=== PATIENT | female | born 1950 | race Caucasian/White ===

== ENCOUNTER → 2016-08-23 | Outpatient (CLI) | payer BC ==
[~2016-08-23] MED LIST: ANAS1TAB19 PO; CALC600T9; ESCI10TA17 PO; ESCI1TAB10 PO; FEXO1TAB46 PO; LOSA100T2; MULT-506 PO; OMEG-27; SIMV10TA5 PO
[2016-08-23 13:24] VITALS: BP 134/73; PULSE 92; TEMP 37; O2SAT 92
--- NOTE | 2016-08-23 15:02 | Radiation Oncology Follow-Up ---
Radiation Oncology Follow-Up Date of Visit August 23, 2016. Reason For Visit Annual follow-up Radiation Completion Date 12/31/13 Diagnosis (1) Stage I breast cancer Status: Resolved Onset Date: 09/27/2013 Histology Subtype: ductal Stage: l Permanent Comment: Abnormal left breast mammogram Status post core needle biopsies of 2 lesions on 09/27/2013; both lesions at 1 o 'clock position. First lesion 4 cm from the nipple infiltrating ductal carcinoma. Second lesion 5 cm from the nipple infiltrating ductal carcinoma, both estrogen receptor positive progesterone receptor positive and HER-2/gray negative. Status post lumpectomy and sentinel lymph node biopsy. Both lesions were [id number] Oncotype DX score of 4 Status post completion of radiation therapy utilizing hypo-fractionation completed 12/31/2013 received 5006 cGy Last Edited By: Deysi Fernandez on Aug 20, 2014 15:19 Interim History She's been doing well over this past year. She denies any changes to her breast. She's noted no masses or tenderness and no change of the axilla. She is up-to-date on mammography. She is on Arimidex and denies side effects. She is up-to-date on DEXA scanning. She was pleased to when the radiologist recommended continued diagnostic mammograms for total 5 years. Allergies Uncoded Allergies: airborne,trees grass mold mildew (Allergy, Unknown, congestion, 11/21/13) nkda (Allergy, Unknown, none, 11/21/13) bananas (Adverse Reaction, Unknown, very nauseas, 11/21/13) Home Medications Scheduled Anastrozole (Arimidex), 1 MG PO DAILY Calcium Carbonate-Vitamin D (Calcium + D), DAILY Escitalopram Oxalate (Lexapro), 30 MG PO DAILY Losartan Potassium & Hydrochlo (Hyzaar), QAM Multivitamin (Multivitamin), 1 TAB PO DAILY [place]-3 Fatty Acids (Fish Oil), QAM Simvastatin (Zocor), 10 MG PO QPM Scheduled PRN Fexofenadine Hcl (Sofia), 180 MG PO DAILY PRN for allergies Review of Systems Gastrointestinal: Symptoms: WNL Oral: Symptoms: No Problems Respiratory: Symptoms: WNL Urinary: Symptoms: WNL Skin: Symptoms: No Problems Breast: Right Upper Arm Measurement: 31.2 Right Mid Arm Measurement: 27.5 Right Wrist Measurement: 17.2 Left Upper Arm Measurement: 31.5 Left Mid Arm Measurement: 25.9 Left Wrist Measurement: 17.0 Arm Dominence: Right Physical Exam Vital Signs Date Time Temp Pulse Resp B/P Pulse Ox O2 Delivery O2 Flow Rate FiO2 08/23/16 13:24 37.0 92 18 134/73 92 Fatigue: None General Appearance: no apparent distress Eyes: normal inspection, EOMI ENT: normal ENT inspection, hearing grossly normal Neck: supple, no adenopathy, thyroid normal Respiratory/Chest: lungs clear, no respiratory distress, no accessory muscle use Breast: Breast examination reveals well-healed incisions of the left breast. There are no masses or tenderness and no axillary adenopathy. There are no skin retractions or nipple changes. There is no edema. Using the [place] score cosmesis she has a in excellent outcome. The right breast showed no masses or tenderness and no axillary adenopathy. Cardiovascular: regular rate, rhythm, no gallop, no murmur Abdomen: non tender Extremities: no pedal edema Neurologic/Psychiatric: no motor/sensory deficits, alert, normal mood/affect Skin: warm/dry Lymphatic: no adenopathy Additional Studies [id number] Address1: [address] [place] [address] [id number] Date: 1950 Sex: F Ref Phy: Rachael Payan M.D. Att Phy: Albina Hernandez MD Rand Phy: German Macias M.D. Inter Phy: Leidy Buckner MD [facility] Zip: [place] [address] SC: C.MAMM Report #: [id number] [employer]: QUINTIN Diagnosis: 6 MO F/U LEFT--BILATERAL DUE Service Date: 10/27/15 MNE: [id number] Ordering Dr: Albina Hernandez MD CC: Albina Hernandez MD CONF: DICTATED BY: Leidy Buckner MD MAMMOGRAPHY REPORT BILATERAL DIGITAL DIAGNOSTIC MAMMOGRAM 3D/2D WITH CAD: 10/27/2015 CLINICAL HISTORY: Annual screening mammogram. Personal history of breast cancer. Comparison is made to exams dated: 04/27/2015 mammogram, 10/15/2014 mammogram, and 09/18/2013 mammogram - [facility]. FINDINGS: Bilateral CC and MLO 2-D digital and tomosynthesis images, spot magnification left CC and ML views were obtained. There are scattered areas of fibroglandular density in both breasts. Current study was also evaluated with a Computer Aided Detection (CAD) system. There is expected architectural distortion in the upper outer posterior left breast, at the site of prior lumpectomy. A linear dermal scar marker overlies the upper outer middle one third of the left breast. There is decreasing trabecular edema and skin thickening of the left breast, likely related to prior treatment. There are benign appearing secretory calcifications throughout the left breast, and stable benign-appearing right breast calcifications. No new suspicious mass, architectural distortion or cluster of microcalcifications is seen bilaterally. IMPRESSION: ACR BI-RADS CATEGORY 2: BENIGN Stable bilateral mammograms, without mammographic evidence of malignancy. Advise follow-up in 1 year for next annual exam. Given the personal history of left breast cancer, consider a remaining a diagnostic patient for at least 5 years post treatment for repeat spot magnification views of the left lumpectomy bed, particularly with the patient's breast cancer presenting with malignant calcifications. These results and recommendations were discussed with the patient at the time of the exam. Approximately 10% of breast cancers are not detected with mammography. A negative mammographic report should not delay biopsy if a clinically suggestive mass is present. Leidy Buckner M.D. ay/:10/27/2015 14:09:17 Piano Stringer: Aliyah BOYD)(Tomasa), [facility] letter sent: Normal 1/2 BI-RADS Code: ACR BI-RADS Category 2: Benign Dictated by: Leidy Buckner MD Signed by: Leidy Buckner MD Assessment & Plan Plan: Continue regular follow-up with Dr. Hernandez, Dr. Macias, Dr. Payan. She continues on Arimidex. She'll continue with the diagnostic mammograms. We asked her to return to our office in 1 year. She may call if she has any questions or concerns in the interim. Total Time In Follow-Up I spent 20 minutes speaking to the patient and performing examination. I spent 15 minutes reviewing information and completing this note. Copy To Rachael Payan M.D.; Albina Hernandez MD; German Macias M.D. Problem Qualifiers (1) Stage I breast cancer: Laterality: left Qualified Codes: C50.912 - Malignant neoplasm of unspecified site of left female breast
== END | disposition home or self-care (01) ==
LOC: C.ONC 13:21
PROVIDERS: ATTEND Physician Assistant Medical
DX: Z08 Encounter for follow-up examination after completed treatment for malignant neoplasm (principal); Z92.3 Personal history of irradiation; Z85.3 Personal history of malignant neoplasm of breast

== ENCOUNTER → 2016-10-27 | Outpatient (CLI) | payer BC ==
[~2016-10-27] MED LIST changes: -ESCI10TA17 PO
--- NOTE | 2016-10-27 13:49 | MAMMOGRAPHY REPORT ---
BILATERAL DIGITAL DIAGNOSTIC MAMMOGRAM TOMOSYNTHESIS WITH CAD: 10/27/2016 CLINICAL HISTORY: 66-year-old woman with a personal history of left breast cancer status post breast conservation therapy presents for annual mammography. TECHNIQUE: Bilateral breast tomosynthesis in addition to standard 2D mammography was performed. Spot magnification left CC and ML views were also obtained. Current study was also evaluated with a Comp uter Aided Detection (CAD) system. COMPARISON: Comparison is made to exams dated: 10/27/2015 mammogram, 04/27/2015 mammogram, 10/15/2014 kayleigh mogram, 04/14/2014 ultrasound, 04/14/2014 mammogram, and 09/27/2013 ultrasound biopsy - [facility]. BREAST COMPOSITION: There are scattered areas of fibroglandular density in both breasts. FINDINGS: There is expected architectural distortion in the upper outer quadrant of the left breast, at the site of prior lumpectomy. There are diffuse bilateral rodlike, probable secretory calcificati ons, throughout the breasts. No new suspicious grouping or cluster of microcalcifications is seen. No obvious new mass or unexpected architectural distortion. Overall, there is no mammographic eviden ce of malignancy, recommend bilateral mammography in one year. IMPRESSION: ACR BI-RADS CATEGORY 2: BENIGN There is no mammographic evidence of malignancy. A 1 year screening mammogram is recommended. Given the personal history of left breast cancer, consider remaining a diagnostic patient to obtain additio nal spot magnification views of the left lung lumpectomy bed, and in case breast ultrasound may be ne eded. The patient has been verbally notified of the results. Approximately 10% of breast cancers are not detected with mammography. A negative mammographic report should not delay biopsy if a clinically suggestive mass is present. Leidy Buckner M.D. ay/:10/27/2016 08:36:03 Technology Intern: Nithya COLON(Hodan)(Tomasa), [facility] letter sent: Normal 1/2 BI-RADS Code: ACR BI-RADS Category 2: Benign
== END | disposition home or self-care (01) ==
LOC: C.MAMM 08:08
PROVIDERS: ATTEND Surgery
DX: Z12.31 Encounter for screening mammogram for malignant neoplasm of breast (principal); Z85.3 Personal history of malignant neoplasm of breast

== ENCOUNTER → 2017-12-01 | Outpatient (CLI) | payer OTHER ==
[~2017-12-01] MED LIST changes: -ANAS1TAB19 PO; +ANAS1TAB59 PO
--- NOTE | 2017-12-04 13:10 | MAMMOGRAPHY REPORT ---
BILATERAL DIGITAL SCREENING MAMMOGRAM TOMOSYNTHESIS WITH CAD: 12/01/2017 CLINICAL HISTORY: Routine screening. Patient has no complaints. Asymmetry. TECHNIQUE: The study was acquired using full field digital technology and interpreted from soft copy. Breast tomosynthesis in addition to standard 2D mammography was performed. Current study was also ev aluated with a Computer Aided Detection (CAD) system. COMPARISON: Comparison is made to exams dated: 10/27/2016 mammogram, 10/27/2015 mammogram, 04/27/2015 mamm ogram, 10/15/2014 mammogram, 04/14/2014 mammogram, and 09/25/2013 mammogram - [facility] er. BREAST COMPOSITION: There are scattered areas of fibroglandular density in both breasts. FINDINGS: No suspicious masses, calcifications, or areas of architectural distortion are noted in either breast . There has been no significant interval change compared to prior exams. There are stable postsurgic al changes in the left upper outer quadrant from prior lumpectomy. Bilateral benign-appearing calcif ications are not significantly changed. IMPRESSION: ACR BI-RADS CATEGORY 2: BENIGN There is no mammographic evidence of malignancy. A 1 year screening mammogram is recommended.( 019) The patient will receive written notification of the results. Some breast cancers are not detected with mammography. A negative mammographic report should not gabrielle y biopsy if a clinically suggestive mass is present. Tonya Chilel M.D. /:12/01/2017 15:43:58 Transmission Calibration Engineer: RT Mariam(R)(M), [facility] letter sent: Normal 1/2 BI-RADS Code: ACR BI-RADS Category 2: Benign
== END | disposition home or self-care (01) ==
LOC: C.MAMM 08:28
PROVIDERS: ATTEND Internal Medicine Hematology
DX: Z12.31 Encounter for screening mammogram for malignant neoplasm of breast (principal); Z85.3 Personal history of malignant neoplasm of breast

== ENCOUNTER 2023-05-17 05:10 | Observation (INO) ==
--- NOTE | 2023-04-18 11:37 | PAT Medication Instructions ---
Medication Instructions Date of Service April 18, 2023 Home Medications acetaminophen 650 mg tablet,extended release 650 mg PO Q12H PRN Pain atorvastatin 20 mg tablet (Lipitor) 20 mg PO PM calcium carbonate 600 mg-vitamin D3 5 mcg (200 unit) tablet 1 tab PO QAM escitalopram oxalate 20 mg tablet (Lexapro) 20 mg PO QAM fexofenadine 180 mg tablet 180 mg PO DAILY PRN Allergy Symptoms glucosamine sulf dipot chlr,msm,chond 550 mg-C 30 mg-gina 1 mg capsule (Glucosamine Chondroitin) 1 cap PO QDL losartan 100 mg-hydrochlorothiazide 25 mg tablet 1 tab PO QPM multivitamin 1 tab PO QAM potassium chloride 20 mEq tablet,extended release 20 meq PO QAM STOP taking 2 weeks before surgery (or as soon as possible if surgery is within 2 weeks) glucosamine sulf dipot chlr,msm,chond 550 mg-C 30 mg-gina 1 mg capsule (Gluc osamine Chondroitin) 1 cap PO QDL DO NOT take the morning of surgery calcium carbonate 600 mg-vitamin D3 5 mcg (200 unit) tablet 1 tab PO QAM fexofenadine 180 mg tablet 180 mg PO DAILY PRN Allergy Symptoms multivitamin 1 tab PO QAM potassium chloride 20 mEq tablet,extended release 20 meq PO QAM Take morning of surgery With a small sip of water, OTHERWISE NOTHING TO EAT OR DRINK AFTER MIDNIGHT: acetaminophen 650 mg tablet,extended release 650 mg PO Q12H PRN Pain (if needed) escitalopram oxalate 20 mg tablet (Lexapro) 20 mg PO QAM Take evening before surgery acetaminophen 650 mg tablet,extended release 650 mg PO Q12H PRN Pain (if needed) atorvastatin 20 mg tablet (Lipitor) 20 mg PO PM fexofenadine 180 mg tablet 180 mg PO DAILY PRN Allergy Symptoms (if needed) losartan 100 mg-hydrochlorothiazide 25 mg tablet 1 tab PO QPM Other Notes If you have any questions please call us at [phone] or [phone] or [phone] or [phone]
--- NOTE | 2023-04-26 10:42 | Anesthesiology Consultation ---
Date of Service April 26, 2023 Assessment & Plan (1) Encounter for pre-operative examination: Chart Review Chart Review: Acceptable Risk for Surgery (pending updated ECHO ) and Patient seen in Pre Admission Testing - Awaiting response to phone message from PCP (S- Dr. Macias) re: updating ECHO prior to surgery - Patient not an ideal OJP candidate (PMH and fair functional status) (currently 23 hour obs) Per PAT appt on 04/26/23, no recent illness/disease exposures, illness related symptoms, or recent illness/disease positive tests. Will leave to surgeon's discretion if preop Covid testing needed Teaching & Discussion Pre-Anesthesia Teaching/Discussion Notes: Instructed NPO after midnight before surgery,except medications with 15 cc of water. Medication instructions provided according to the PAT guidelines. History Surgery Operation Date: 05/17/23 09:05 Proposed Procedures p Left Total Hip Arthroplasty - Refugio Garcia MD Height/Weight Height: 5 ft Weight: 92.9 kg Allergies Allergy/AdvReac Type Severity Reaction Status Date / Time airborne,trees grass mold Allergy Unknown congestion Uncoded 04/13/23 09:56 mildew nkda Allergy Unknown none Uncoded 04/13/23 09:56 bananas AdvReac Unknown very Uncoded 04/13/23 09:56 nauseas Medications Home Medications Medication Instructions Recorded Confirmed Last Taken acetaminophen 650 mg 650 mg PO Q12H PRN Pain 04/13/23 04/13/23 Unknown tablet,extended release atorvastatin 20 mg tablet (Lipitor) 20 mg PO PM 04/13/23 04/13/23 Unknown calcium carbonate 600 mg-vitamin 1 tab PO QAM 04/13/23 04/13/23 Unknown D3 5 mcg (200 unit) tablet escitalopram oxalate 20 mg tablet 20 mg PO QAM 04/13/23 04/13/23 Unknown (Lexapro) fexofenadine 180 mg tablet 180 mg PO DAILY PRN Allergy 04/13/23 04/13/23 Unknown Symptoms glucosamine sulf dipot 1 cap PO QDL 04/13/23 04/13/23 Unknown chlr,msm,chond 550 mg-C 30 mg-gina 1 mg capsule (Glucosamine Chondroitin) losartan 100 1 tab PO QPM 04/13/23 04/13/23 Unknown mg-hydrochlorothiazide 25 mg tablet multivitamin 1 tab PO QAM 04/13/23 04/13/23 Unknown potassium chloride 20 mEq 20 meq PO QAM 04/13/23 04/13/23 Unknown tablet,extended release Amino Acid Synergy See Rx Instructions .Route .COMPLEX 04/26/23 Unknown Past Medical History Medical History Osteoarthritis History of breast cancer dx'd 2013. Left breast. s/p lumpectomy+ radiation. Depression Cardiac murmur no rn surgery. denies previous echo. HLD (hyperlipidemia) HTN (hypertension) Bilateral hip joint arthritis Exercise / Class Metabolic Activity III < 4 Walking/Shop/Light housework (no chest pain or SOB with flat surface ambulation- uses can for ambulation ) Past Family History Family History Sister PONV (postoperative nausea and vomiting) Past Surgical History Surgical History History of oral surgery History of wisdom tooth extraction History of colonoscopy History of lumpectomy of left breast Past Anesthesia History No Hx of Anesthesia Complications and No Family Hx of Anesthesia Complications (with exception to sister - PONV) History of PONV No Hx of PONV and No Hx of Motion Sickness Social History Smoking Status: Never smoker Do You Dip or Chew Tobacco: No Hx Alcohol Use: Yes Alcohol type: wine Alcohol Intake Frequency Comment: 5 glasses of wine per week Hx Substance Use: No substance use type: does not use Review of Systems - Occ palpitations x years - chronic/intermittent- stable (hx of Holter monitor in the past- no issues per patient) - Hx of snoring- hx of sleep study in the past- no Ching Patient denies chest pain, shortness of breath, dyspnea on exertion, reflux, cough, wheezing. No hx of seizures, stroke, OR. No hx of blood clots or blood transfusions Physical Exam Vital Signs VITALS BP 126/72 P 66 TEMP 98.5 SP02 96% RESP 16 Constitutional no acute distress ENMT Mouth: no TMJ clicking Thyromental Distance: > or= 3.5 Finger Breadths (3.5) Mallampati Class: I Permanent implant on the side Neck neck extension not limited Respiratory normal respiratory effort; no respiratory distress Auscultation: lungs clear to auscultation bilaterally; no wheezes Cardiovascular Rate/Rhythm: regular rate and regular rhythm Heart Sounds: + murmur (II/ murmur ) Vessels: no carotid bruit Musculoskeletal Spine: no pain with cervical ROM Extremities: extremities normal to inspection Psychiatric Orientation: alert Lab Results Anesthesia Preop Results Results Anesthesia Widget: WBC 7.51 K/ul (4.8-10.8) 04/26/23 Hgb 13.7 g/dl (12.0-16.0) 04/26/23 Hct 40.2 % (37.0-47.0) 04/26/23 Plt 254 K/uL (130-400) 04/26/23 Na 141 mmol/L (136-145) 04/26/23 K 3.5 mmol/L (3.5-5.1) 04/26/23 Cl 101 mmol/L (98-107) 04/26/23 CO2 32 mmol/L (21-32) 04/26/23 BUN 16 mg/dl (6-23) 04/26/23 Creat 1.06 mg/dl (0.6-1.2) 04/26/23 Glucose Level 86 mg/dl (70-99(Fasting)) 04/26/23 PT 10.5 Seconds (9.0-12.0) 04/26/23 PTT 29 Seconds (21-31) 04/26/23 INR 1.0 (0.9-1.1) 04/26/23 Blood Type B Positive 04/26/23 Antibody Screen NEGATIVE 04/26/23 Testing Electrocardiogram Date: 04/26/23 SR with 1st degree AVB at 65bpm Nonspecific T wave abnormality Chest X-Ray Date: 04/26/23 FINDINGS: Lung volumes are normal. There is no consolidation. Symmetric biapical opacities favor scarring. There is no pneumothorax or pleural effusion. Cardiac size is normal. Mediastinal contours are normal. There is no evidence for pulmonary edema. IMPRESSION: No acute cardiopulmonary findings.
--- NOTE | 2023-05-14 11:49 | History & Physical Report ---
Date of Service May 14, 2023 Assessment & Plan (1) Bilateral hip joint arthritis: 72-year-old female who is bilateral hip arthritis left side quite a bit more severe and debilitating than the right. She has failed conservative treatment. She like to have her left hip replaced. Plan: Orgran to take her to the operating do a left total hip replacement. The risks Mente this procedure explained to the patient clued but not limited to DVT, PE, , infection, neurovascular injury, fracture, dislocation, leg length inequality, need for further surgery in the future. The patient understands and desires to proceed. Informed consent is obtained. She is going to plan to stay in the hospital overnight. Hopeful discharge postop day 1. Her sister is going to come and assist in her care. Will plan on DVT prophylaxis including thigh-high teds, SCDs, aspirin twice a day. What to limit all other NSAIDs due to her apparent kidney disease. History of Present Illness Chief Complaint: . Left hip pain. Primary Care Provider: Shannon Macias MD . Patient is a 72-year-old female who presents for surgical treatment of her left hip. She has a several year history of increased left hip pain discomfort describes gotten worse over the past 10 years. Consequently worse over the past 3 years. Scribes groin pain thigh pain. She been seeing Dr. Maria at [facility] who has been treating her with injections. She has had 3 injections at all. This become less successful over time. Pains become more distant debilitating. She is actually had to resort to using a cane for the past year. She like to have her hip fixed. Allergies Allergy/AdvReac Type Severity Reaction Status Date / Time airborne,trees grass mold Allergy Unknown congestion Uncoded 04/13/23 09:56 mildew nkda Allergy Unknown none Uncoded 04/13/23 09:56 bananas AdvReac Unknown very Uncoded 04/13/23 09:56 nauseas Home Medications Medication Instructions Recorded Confirmed Type acetaminophen 650 mg 650 mg PO Q12H PRN Pain 04/13/23 04/13/23 History tablet,extended release atorvastatin 20 mg tablet (Lipitor) 20 mg PO PM 04/13/23 04/13/23 History calcium carbonate 600 mg-vitamin 1 tab PO QAM 04/13/23 04/13/23 History D3 5 mcg (200 unit) tablet escitalopram oxalate 20 mg tablet 20 mg PO QAM 04/13/23 04/13/23 History (Lexapro) fexofenadine 180 mg tablet 180 mg PO DAILY PRN Allergy 04/13/23 04/13/23 History Symptoms glucosamine sulf dipot 1 cap PO QDL 04/13/23 04/13/23 History chlr,msm,chond 550 mg-C 30 mg-gina 1 mg capsule (Glucosamine Chondroitin) losartan 100 1 tab PO QPM 04/13/23 04/13/23 History mg-hydrochlorothiazide 25 mg tablet multivitamin 1 tab PO QAM 04/13/23 04/13/23 History potassium chloride 20 mEq 20 meq PO QAM 04/13/23 04/13/23 History tablet,extended release Amino Acid Synergy See Rx Instructions .Route .COMPLEX 04/26/23 History Wheeled Walker #1 ea 05/03/23 Rx Past Med/Surg History Medical History Osteoarthritis History of breast cancer dx'd 2013. Left breast. s/p lumpectomy+ radiation. 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 denies previous echo. HLD (hyperlipidemia) HTN (hypertension) Bilateral hip joint arthritis Surgical History History of oral surgery History of wisdom tooth extraction History of colonoscopy History of lumpectomy of left breast Family History Sister PONV (postoperative nausea and vomiting) Social History Smoking Status: Never smoker Second Hand Exposure: No; Do You Dip or Chew Tobacco: No; Hx Alcohol Use: Yes Alcohol type: wine Hx Substance Use: No Preferred Language: Maori Communication Ability: Effective Quality Control Inspector Required: No Beliefs That Will Affect Care: None Current Living Situation: Alone Feels Safe at Home: Yes Assistive Devices: Cane and Glasses Review of Systems All systems reviewed & are unremarkable except as noted in HPI & below. Physical Exam . Physical examination was a pleasant middle-age female. Looks in pretty good health. Examination left hip reveal patient walks with use of a cane. Does she limps on the left side. Is about half centimeter short in the left compared to the right. She does have pain and stiffness with hip motion. She can internally rotate to neutral which recreates her pain. Negative straight leg ra ise. She is neurologically intact. Constitutional WD/WN, vitals as above Respiratory normal respiratory effort, lungs clear to auscultation Cardiovascular RRR, no murmur, no edema Gastrointestinal (Abdomen) normal bowel sounds, soft, nontender, no hepatosplenomegaly Results & Data Results & Data Laboratory Results . Diagnostic Findings . X-rays left hip were reviewed. She has advanced left hip arthritis. She got complete loss of superior joint space. She got fairly mild right hip arthritis. PG Care Time/CCT Total # of Minutes Spent Total Time Spent with Patient: Total time spent is greater than 50% in coordination of care (as documented) at patient's floor/unit and/or counseling patient: Coding Level of Care Code None Diagnoses Bilateral hip joint arthritis M16.0
--- OUTSIDE RECORDS SUMMARY | 2023-05-17 05:40 | External Medical Summary | Summary of Care ---
Author Name Unknown Organization [facility] Address [address] [place] [address] Phone [phone] Care Team Providers Care Strategic Consultant Name Role Phone Shannon Macias MD Primary Care Provider + Reason for Referral * Precert (Within 10 days (routine)) - Authorized Specialty Diagnoses / Procedures Referred By Contac t Referred To Contact Cardiac Studies Diagnoses Preoperative cardiovascular examination Procedures ECHO, COMPLETE (2D), TRANS-THORACIC Shannon Macias MD [address] [place] [address] Referral ID Status Reason Start Date Expiration Date V isits Requested Visits Authorized [id number] Authorized Precert 04/26/2023 999 999 Reason for Visit * Reason Onset Date Comments Order Request 04/26/2023 Encounter Details Date Type Department Care Team (Late st Contact Info) Description 04/26/2023 Telephone General Internal Medicine [facility] Hillman [address] [place] [address] Sahnnon Macias MD [address] [place] [address] Order Request Allergies Active Allergy Reactions Criticality Noted Date Comments Ragweed 06/18/2014 Food (See Comments) Nausea/vomiting 06/18/2014 bananas Other Allergy (See Comments) 10/29/2019 Cats, trees, air borne household odors. documented as of this encounter (statuses as of 04/27/2023) Medications Medication Sig Dispensed Refills Start Date End Date Status CALCIUM + D 600-200 MG-UNIT PO TABS 1 daily 0 Active M-VIT PO TABS 1 TABLET DAILY 0 03/20/2011 Active Atorvastatin Calcium 20 MG Oral Tablet (Lipitor) TAKE 1 TABLET BY MOUTH EVERY DAY IN THE MORNING 90 Tablet 1 02/02/2023 Active Losartan Potassium-HCTZ 100-25 MG Oral Tablet (Hyzaar)Indications:H TN, goal below 140/90 TAKE 1 TABLET BY MOUTH EVERY DAY IN THE MORNING 90 Tablet 1 02/02/2023 Active Klor-Con M20 20 MEQ Oral Tablet Extended Release (Potassium Chloride ER)Indications:HTN, goal below 140/90 TAKE 1 TABLET BY MOUTH EVERY DAY IN THE MORNING 90 Tablet 1 02/02/2023 Active Escitalopram Oxalate 20 MG Oral Tablet (Lexapro)Indications: Recurrent major depressive disorder, in full remission (HCC) TAKE 1 TABLET BY MOUTH EVERY DAY IN THE MORNING 90 Tablet 1 02/02/2023 Active Glucosamine Chondroitin Complx Oral Capsule Take 1 Capsule by mouth in the morning and 1 Capsule before bedtime. 0 Active documented as of this encounter (statuses as of 04/27/2023) Active Problems Problem Noted Date Diagnosed Date Recurrent major depressive disorder, in full rem ission 08/04/2021 Malignant neoplasm of nipple of left breast in female, estrogen receptor positive 08/04/2021 Current mild episode of amy r depressive disorder without prior episode 10/27/2020 History of nonmelanoma skin cancer 03/14/2020 Overview: BCC left pretibial Major depressive disorder, recurrent, unspecifie d 04/12/2019 Malignant neoplasm of left b reast in female, estrogen receptor positive 09/22/2013 HTN, goal below 140/90 01/04/2013 Insomnia 12/04/2012 Overview: ICD-10 update of inactive term Urticaria 04/13/2011 Overview: began 03/16/11 Angioedema 04/13/2011 Overview: Began 03/16/11 Adverse food reaction, other 04/13/2011 Overview: banana - nausea ADVANCE DIRECTIVE INFORMATION 03/23/2006 Overview: Yes-advised to bring copy in to be scanned into EMR. Depression documented as of this encounter (statuses as of 04/27/2023) Resolved Problems Problem Noted Date Diagnosed Date Resolved Date Allergic rhinitis 04/13/2011 10/04/2013 Conjunctivitis, allergic 04/13/2011 [facility] ALLRG CONJUNCTIV NEC 03/17/2003 Allergic rhinitis 03/17/2003 04/13/2011 OTHER ADVERSE FOOD REACTIONS - BANANA 03/17/2003 04/13/2011 Overview: nausea documented as of this encounter (statuses as of 04/27/2023) Immunizations Name Administration Dates Next Due COVID-19 mRNA, LNP-s, No Pre serve, 2-Dose Series (Moderna) 01/06/2022,10/08/2021,06/17/2020,05/16 COVID-19, mRNA, LNP-s, PF, B ooster, 100mcg/0.5mg (Moderna) 02/22/2021 Covid-19, Mrna, Lnp-s, Pf, B ivalent, 50 Mcg, IM, 12 yrs and above (Moderna) 01/06/2022 Pneumococcal Conjugate Vacc, 13 Valent (Prevnar) 10/09/2017 Pneumococcal Polysaccharide PPV23 (Pneumovax) 10/11/2018 Season Influenza, Quad, PF, Adjuvanted, 65+ Yrs, IM (FLUAD) 02/07/2020 Seasonal Influenza Virus Vac cine, Unspecified Formulation 02/05/2021,02/07/2020,01/29/2019,02/15,02/13/2017,02/29/2016,01/13/2014 ,01/12/2013,04/23/2012,04/01/2010,04/2009,02/09/2009,01/26/2009, 8 Seasonal Influenza, PF, 6 M & above, IM , (FluLaval or Fluzone) 02/15/2018,02/13/2017 Seasonal Influenza, Quadriva lent Hd (Fluzone Hd) 01/27/2023,01/14/2022,02/05/2021 Seasonal Influenza, Quadriva lent, No Preserve, IM 02/29/2016,03/02/2015 Seasonal Influenza, Split, I IV3, With Preserve, Inj 01/13/2014,01/12/2013,04/23/2012,02/22,02/09/2009 Seasonal Influenza, Trivalen t, Adjuvanted, 65+ yrs 01/29/2019 TD - Tetanus/Diptheria (ADULT) 04/10/2018 TD, Preservative Free 04/10/2018 TDAP (age 11 and older)(Adacel) 11/07/2007 Varicella Zoster Vaccine (Adult) 09/03/2012 Zoster Vaccine Recombinant (Shingrix) ,11/01/2019,05/24/2019,05/24 documented as of this encounter Social History Tobacco Use Types Packs/Day Years Used Date Smoking Tobacco: Never Passive Smoke Exposure: Never Smokeless Tobacco: Never Comments:no passive smoke Alcohol Use Standard Drinks/Week Comments Yes 0 (1 standard drink = 0.6 oz pure alcohol) social, wine with dinner occassionally PHQ-2 Answer Date Recorded PHQ Adult Total Score 0 08/31/2022 Hunger Vital Sign Answer Date Recorded Within the past 12 months, y ou worried that your food would run out before you got the money to buy more. Never true 08/19/19 23 Within the past 12 months, t he food you bought just didn't last and you didn't have money to get more. Never true 08/18/2022 Sex and Gender Information Value Date Recorded Sex Assigned at Female 10/29/2019 11:38 AM EDT Gender Identity Female 10/29/2019 11:38 AM EDT Sexual Orientation Straight 10/29/2019 11 :38 AM EDT Job Start Date Occupation Industry Not on file Not on file Not on file documented as of this encounter Miscellaneous Notes * Telephone Encounter - Meli Beck OSA - 04/27/2023 12:09 PM EST Appts scheduled * Telephone Encounter - Shannon Macias MD - 04/26/2023 5:31 PM EST We can schedule 2 D Echo. Order is in. If not seen, should schedule an appointment with me or any provider few days prior to surgery. Order is in for 2 D echo * Telephone Encounter - Kiki Kruse LPN - 04/26/2023 3:45 PM EST Received call from Tamra MARCOS at [facility] pre anesthesia testing. Patient had pre op labs, EKG, CXR done today, all were normal. Patient has chronic heart murmur. Tamra is requesting an order for an echo to rule out valvular disease prior to her hip surgery on 05/17. She is having left total hip replacement. Please advise. documented in this encounter Plan of Treatment Upcoming Encounters Date Type Department Care Team (Late st Contact Info) Description 04/28/2023 10:45 AM EST Cardiac Studies Cardiac Studies, [address] [address] 05/11/2023 3:20 PM EST Office Visit General Internal Medicine [facility] [address] [facility] [place] [address] Shannon Macias MD [address] [facility] [place] [address] 04/30/2024 10:20 AM EST Office Visit Dermatology [facility] [address] [facility] [place] [address] Deborah Houston PA-C [address] [facility] [place] [address] Scheduled Orders Name Type Priority Associated Diagnoses Orde r Schedule ECHO, COMPLETE (2D), TRANS-THORACIC Echocardiology Routine Preoperative cardiovascular examination Expected: 04/26/2023, Expires: 05/27/2025 Scheduled Procedures Name Priority Associated Diagnoses Date/Ti me COLONOSCOPY FLEXIBLE PROXIMA L DIAGNOSTIC Recall Special screening for malignant neoplasms, colon Health Maintenance Due Date Last Done Comments Cologuard 1997 Fecal Occult Blood Test 1997 Sigmoidoscopy 1997 Albumin/Creatinine Ratio 04/22/2017 04/22/2014 COVID-19 Vaccine (2022- season) 2022 01/06/2022, 01/06/2022, 10/08/2021, Additional history exists GFR 08/27/2023 08/26/2022, 04/0 11/2021, 10/21/2020, Additional history exists Depression Screening 09/01/2023 08/31/2022 Mammogram 12/23/2023 12/22/2022, 11/24, 12/20/2021, Additional history exists Colonoscopy 07/14/2024 07/14/2014, 06/23, 08/30/2004 Colorectal Cancer Screening 07/14/2024 Lipid Panel 08/27/2027 08/26/2022, 04/0 11/2021, 10/21/2020, Additional history exists DXA Scan 11/24/2027 11/23/2020, 12/25/2013 DTaP,Tdap,and Td Vaccines (4 - Td or Tdap) 04/10/2028 04/10/2018, 04/10/2018, 11/07/2007 Pneumococcal Vaccine: 65+ Years Completed 10/11/2018, 10/09/2017 Zoster Vaccines Completed 11/01/2019, 10/22, 05/24/2019, Additional history exists Influenza Vaccine (FLU shot) Completed 09/2022, 01/14/2022, 02/05/2021, Additional history exists GARDASIL-HPV IMMUNIZATION SERIES Aged Out No longer eligible based on patient's age to complete this topic Hepatitis B Aged Out No longer eligi ble based on patient's age to complete this topic MENINGOCOCCAL (MENACTRA/MENVEO) Aged Out No longer eligible based on patient's age to complete this topic documented as of this encounter Medical Devices Not on filedocumented as of this encounter Visit Diagnoses Diagnosis Preoperative cardiovascular examination- Primary Pre-operative cardiovascular examination documented in this encounter Advance Directives Documents on File Type Date Recorded Patient Mold Checker Expl anation Advance Directives and Living Will 10/29/2019 ADVANCE DIRECTIVE / LIVING WILL DURABLE HEALTH CARE POA Power of Stablehand 10/29/2019 POWER OF A TTORNEY LIVING WILL Care Teams Strategic Consultant Relationship Specialty Start Date End Date Shannon Macias MD [address] [place] [address] PCP - General Internal Medicine 05/24/19 documented as of this encounter
--- OUTSIDE RECORDS SUMMARY | 2023-05-17 05:40 | External Medical Summary | Summary of Care ---
Author Name Unknown Organization [facility] Address [address] [place] [address] Phone [phone] Care Team Providers Care Learning Strategist Name Role Phone Shannon Macias MD Primary Care Provider + Reason for Visit * Reason Comments pre-op exam Pre op exam, L hip r eplacement 05/17/2023, Dr. Garcia. Encounter Details Date Type Department Care Team (Late st Contact Info) Description 05/11/2023 3:20 PM EST Office Visit General Internal Medicine [facility] [address] [place] [address] Shannon Macias MD [address] [place] [address] Preoperative general physical examination*; Current mild episode of major depressive disorder without prior episode (HCC); Malignant neoplasm of nipple of left breast in female, estrogen receptor positive (HCC) Allergies Active Allergy Reactions Criticality Noted Date Comments Ragweed 06/18/2014 Food (See Comments) Nausea/vomiting 06/18/2014 bananas Other Allergy (See Comments) 10/29/2019 Cats, trees, dust, mold, mildew, grass.. documented as of this encounter (statuses as of 05/11/2023) Medications Medication Sig Dispensed Refills Start Date [...] and 1 Capsule before bedtime. 0 Active Amino Acids Complex Oral Tablet .COMPLEX 0 04/26/2023 Active documented as of this encounter (statuses as of 05/11/2023) Active Problems Problem Noted Date Diagnosed Date [...] as of this encounter (statuses as of 05/11/2023) Resolved Problems Problem Noted Date Diagnosed Date Resolved Date Allergic rhinitis 04/13/2011 10/04/2013 Conjunctivitis, allergic 04/13/2011 [facility] ALLRG CONJUNCTIV NEC 03/17/2003 Allergic rhinitis 03/17/2003 04/13/2011 OTHER ADVERSE FOOD REACTIONS - BANANA 03/17/2003 04/13/2011 Overview: nausea documented as of this encounter (statuses as of 05/11/2023) Immunizations Name Administration Dates Next Due COVID-19 mRNA, LNP-s, No Pre serve, 2-Dose Series (Moderna) 01/06/2022,10/08/2021,06/17/2020,05/16 COVID-19, mRNA, LNP-s, PF, B ooster, 100mcg/0.5mg (Moderna) 02/22/2021 Covid-19, Mrna, Lnp-s, Pf, B ivalent, 50 Mcg, IM, 12 yrs and above (Moderna) 01/06/2022 Pneumococcal Conjugate Vacc, 13 Valent (Prevnar) 10/09/2017 Pneumococcal Polysaccharide PPV23 (Pneumovax) 10/11/2018 RSV Vac., Recomb, Adjuvant, PF,0.5 Ml (Arexvy) 02/13/2023 Season Influenza, Quad, PF, Adjuvanted, 65+ Yrs, IM (FLUAD) 02/07/2020 Seasonal Influenza Virus Vac cine, Unspecified Formulation 02/05/2021,02/07/2020,01/29/2019,02/15,02/13/2017,02/29/2016,01/13/2014 ,01/12/2013,04/23/2012,04/01/2010,1104/2009,02/09/2009,01/26/2009, 8 Seasonal Influenza, PF, 6 M & [...] Passive Smoke Exposure: Never Smokeless Tobacco: Never Tobacco Cessation:Counseling Given: Not Answered Comments:no passive smoke Alcohol Use Standard Drinks/Week [...] on file documented as of this encounter Last Filed Vital Signs Vital Sign Reading Time Taken Comments Blood Pressure 118/60 05/11/2023 3:15 PM EST Pulse 73 05/11/2023 3:15 PM EST Temperature 37.3 C (99.2 F) 05/11/2023 3:15 PM ES T Respiratory Rate - - Oxygen Saturation 97% 05/11/2023 3:15 PM EST Inhaled Oxygen Concentration - - Weight 93.3 kg (205 lb 9.6 oz) 05/11/2023 3:15 P M EST Height 165.7 cm (5' 5.25") 05/11/2023 3:15 PM ES T Body Mass Index 33.95 05/11/2023 3:15 PM EST documented in this encounter Progress Notes * Shannon Macias MD - 05/11/2023 3:30 PM EST HPI: Krupa Ignacio is a 72 year old female who presents with: Chief Complaint Patient presents with pre-op exam Pre op exam, L hip replacement 05/17/2023, Dr. Garcia. Patient is here for the Preop examination as she is going for left hip replacement on 05/17/[address] Garcia at [facility]. Chart reviewed with the patient including current meds, last labs and HM. No acute event since we saw patient last time including no recent fall or injuries. Recently had 2 D Echo which showed EF 60 to 65%, no other acute changes. Labs done at hospital for preop were normal, no acute changes. Reviewed through pt's hospital portal. Denies any chestpain/sob/palpitation/swealling in the legs. Denies any cough/sob/wheezing/chestpain. Denies nausea,vomiting, diarrhoea, constipation, abdominal pain or blood in stool. Denies heart burn. Has good appetite. No urinary symptoms. Denies any anxiety or depression. Patient Active Problem List Diagnosis Code ADVANCE DIRECTIVE INFORMATION Depression F32.A Urticaria L50.9 Angioedema T78.3XXA Adverse food reaction, other Insomnia G47.00 HTN, goal below 140/90 I10 Malignant neoplasm of left breast in female, estrogen receptor positive (HCC) C50.912, Z17.0 Major depressive disorder, recurrent, unspecified (HCC) F33.9 History of nonmelanoma skin cancer Z85.828 Current mild episode of major depressive disorder without prior episode (HCC) F32.0 Recurrent major depressive disorder, in full remission (HCC) F33.42 Malignant neoplasm of nipple of left breast in female, estrogen receptor positive (HCC) C50.012, Z17.0 Current Outpatient Medications Medication Sig Dispense Refill CALCIUM + D 600-200 MG-UNIT PO TABS 1 daily M-VIT PO TABS 1 TABLET DAILY Atorvastatin Calcium 20 MG Oral Tablet (Lipitor) TAKE 1 TABLET BY MOUTH EVERY DAY IN THE MORNING 90Tablet 1 Losartan Potassium-HCTZ 100-25 MG Oral Tablet (Hyzaar) TAKE 1 TABLET BY MOUTH EVERY DAY IN THE MORNING 90 Tablet 1 Klor-Con M20 20 MEQ Oral Tablet Extended Release (Potassium Chloride ER) TAKE 1 TABLET BY MOUTH EVERY DAY IN THE MORNING 90 Tablet 1 Escitalopram Oxalate 20 MG Oral Tablet (Lexapro) TAKE 1 TABLET BY MOUTH EVERY DAY IN THE MORNING 90Tablet 1 Glucosamine Chondroitin Complx Oral Capsule Take 1 Capsule by mouth in the morning and 1 Capsule before bedtime. Amino Acids Complex Oral Tablet .COMPLEX No current facility-administered medications for this visit. The patient's medication list was reviewed and updated as needed. Review of patient's allergies indicates: Allergen Reactions Environmental [Ragweed] Food (See Comments) Nausea/vomiting bananas Other Allergy (See Comments) Cats, trees, dust, mold, mildew, grass.. Past Medical History: Diagnosis Date ALLERGIC RHINITIS NOS 03/17/2003 Cancer (HCC) 10/23/2013 breast [facility] ALLRG CONJUNCTIV NEC 03/17/2003 Depression Dyslipidemia, goal to be determined TC 289 Hypertension OTHER ADVERSE FOOD REACTIONS - BANANA 03/17/2003 Social History Socioeconomic History Marital status: Single Tobacco Use Smoking status: Never Passive exposure: Never Smokeless tobacco: Never Tobacco comments: no passive smoke Vaping Use Vaping Use: Never used Substance and Sexual Activity Alcohol use: Yes Comment: social, wine with dinner occassionally Drug use: No Sexual activity: Not Currently Social History Narrative [facility] INFORMATION ENVIRONMENTAL HISTORY: Type of Home: [facility] Type of Heating System: Oil and Forced air Air Conditioning: Yes Dining room Basement: Unfinished, Dampness, Dehumidifier, Water Problems and Mold, mildew Home have cockroaches: No Irritants in the home: None Patient's bedroom location: Floor: first Type of selene: Hardwood Beds: Number: 1 Type of beds: Mattress and Box spring Pillows: Number: 2 Type of pillows: Synthetic (hypoallergenic, polyester) Bedroom contains: Minimal items Pets: none Lives on a farm: No [employer] nonprofit - Community mobilizer: no occupation related worsening of symptoms. Entered by: Brad Britton MD 04/13/2011 [employer] Non-Profit: [facility] Super[employer] all volunteers Social Determinants of Health Food Insecurity: No Food Insecurity (08/18/2022) Hunger Vital Sign Worried About Running Out of Food in the Last Year: Never true Ran Out of Food in the Last Year: Never true Family History Problem Relation Age of Onset Other (nephrolithiasis) Sister Heart Disorder Father of congestive heart failure, age 88 Allergies Father hayfever/"Hay fever" Ear Problems Father Wore bilateral hearing aides Eye Problems Father Wore glasses Other (cad) Father implantable defibrillator, 81. 1st [place] age 53 Heart Disorder Grandmother (Paternal) of congestive heart failure, age 83 Heart Disorder Grandmother (Maternal) [place] age 75/ of heart attack, age 71 Arthritis Grandmother (Maternal) Osteoarthritis Heart Disorder Grandfather (Maternal) Mi late 50's early 60's/ of heart attack, age 69 Heart Disorder Grandfather (Paternal) [place] age 53/ heart attack, age 54 Hypertension Mother Cancer Mother bladder/Bladder cancer, metathesized Eye Problems Mother Wore glasses Stroke Mother Later in life, while having treatments for bladder cancer/When she was being treated for cancer Arthritis Mother Osteoarthritis Heart disease Sister [place] age 58 Other (JUSTO) Sister Other (JUSTO) Sister Arthritis Sister Eye Problems Sister Arthritis Sister Eye Problems Sister Wears glasses Eye Problems Sister Wears glasses Parkinsonism Sister Stroke Sister hemorrhagic, R hemisphere All system negative except as per hpi. OBJECTIVE: BP 118/60 | Pulse 73 | Temp 37.3 C (99.2 F) | Ht 1.657 m (5' 5.25") | Wt 93.3 kg (205 lb 9.6 oz) | LMP 06/08/2005 | SpO2 97% | BMI 33.95 kg/m | BSA 2.07 m PHYSICAL EXAM: HEENT: PERRLA, EOMI, anicteric sclera, b/l tympanic membrane is pearly white, no erythema, no pharyngeal erythema, no lymphadenopathy, neck supple CVS: RRR, no murmurs, rubs or gallops, s1 s 2normal. RESP: clear to auscultation, no wheezing or crackles ABD: soft, NT/ND EXT: no edema, cyanosis, peripheral pulses palpable bilaterally No large joint swelling, no redness, range of motion normal. Skin normal. Gait normal. Mood stable No focal weakness ASSESSMENT AND PLAN: Preoperative general physical examination (Primary) Clinically stable to move forward with surgery on 05/17/23. Avoid nsaids. Continue current statin,Bp med losartan- HCTZ. Daily and last dose will be night before the surgery. Pt takes her meds at night daily. Current mild episode of major depressive disorder without prior episode (HCC) Stable. Malignant neoplasm of nipple of left breast in female, estrogen receptor positive (HCC) In remission. Shannon Macias MD documented in this encounter Nursing Notes * Maida Iniguez LPN - 05/11/2023 3:15 PM EST Chief Complaint Patient presents with pre-op exam Pre op exam, L hip replacement 05/17/2023, Dr. Garcia. documented in this encounter Plan of Treatment Upcoming Encounters Date Type Department Care Team (Late st Contact Info) Description 09/21/2023 8:40 AM EDT Office Visit General Internal Medicine [facility] [address] [facility] [place] [address] Shannon Macias MD [address] [place] [address] 04/30/2024 10:20 AM EST Office Visit Dermatology [facility] [address] [place] [address] Deborah Houston PA-C [address] [place] [address] Scheduled Procedures Name Priority Associated Diagnoses Date/Ti me COLONOSCOPY FLEXIBLE PROXIMA L DIAGNOSTIC Recall Special screening for malignant neoplasms, colon Health Maintenance Due Date Last Done Comments Cologuard 1997 Fecal Occult Blood Test 1997 Sigmoidoscopy 1997 Albumin/Creatinine Ratio 04/22/2017 04/22/2014 COVID-19 Vaccine ( season) 2022 01/06/2022, 01/06/2022, 10/08/2021, Additional history [...] of this encounter Visit Diagnoses Diagnosis Preoperative general physical examination- Primary Other specified pre-operative examination Current mild episode of major depressive disorder without prior episode (HCC) Malignant neoplasm of nipple of left breast in female, estrogen receptor positive (HCC) documented in this encounter Advance Directives Documents on File Type Date Recorded Patient Ultrasound Spec Expl anation Advance Directives and Living Will 10/29/2019 ADVANCE DIRECTIVE / LIVING WILL DURABLE HEALTH CARE POA Power of Sheet Rock Layer 10/29/2019 POWER OF A TTORNEY LIVING WILL Care Teams Learning Strategist Relationship Specialty Start Date End Date Shannon Macias MD [address] [place] [address] PCP - General Internal Medicine 05/24/19 documented as of this encounter
[2023-05-17] MEDS ORDERED: METOCLOPRAMIDE HCL 10 MG TABLET PO SCH (06:00)
[2023-05-17] MEDS ORDERED: FAMOTIDINE 20 MG TAB PO SCH (06:00)
[2023-05-17] MEDS ORDERED: LR 60ML/HR IV SCH (06:00)
[2023-05-17] MEDS ORDERED: ceFAZolin 2000MG 2,000 MG/15 ML SYR IV SCH (06:00)
[2023-05-17] MEDS ORDERED: ACETAMINOPHEN 500 MG TAB PO SCH (06:00)
[2023-05-17] MEDS ORDERED: TRANEXAMIC ACID 1,000 MG **IV Pre-op IV SCH (06:00)
[2023-05-17] MEDS ORDERED: CeleBREX 200 MG CAP PO SCH (06:00)
[2023-05-17] MEDS ORDERED: LR 500ML BOLUS, THEN 15ML/HR IV SCH (06:00)
[2023-05-17] MEDS ORDERED: BUPIVACAINE 0.5 % 5 MG/1 ML PF 10ML VIAL ONE (06:15)
[2023-05-17] MEDS ORDERED: diphenhydrAMINE 50 MG/ML VIAL IV PRN (06:33)
[2023-05-17] MEDS ORDERED: NALOXONE HCL 0.08 MG in SYRINGE 1.8 ML IV PRN (06:33)
[2023-05-17] MEDS ORDERED: NALOXONE HCL 0.4 MG/1 ML VIAL/CARP IV PRN ×2 (06:33→10:16)
[2023-05-17] MEDS ORDERED: MoRPHine SULFATE PF 1 MG/ML 10 ML AMP/VIAL INT SPINAL ONE (06:33)
[2023-05-17] MEDS ORDERED: ONDANSETRON INJ 2 MG/ML 2 ML VIAL IV PRN (06:33)
[2023-05-17] MEDS ORDERED: LACTATED RINGER'S 500 ML IV PRN (06:33)
[2023-05-17] MEDS ORDERED: ATROPINE SULFATE 0.1 MG/ML 10ML SYR IV PRN (06:33)
[2023-05-17] MEDS ORDERED: NALOXONE HCL 1 MG in SODIUM CHLORIDE 0.9% 1,000 ML IV PRN (06:33)
[2023-05-17] MEDS ORDERED: NALBUPHINE HCL 5 MG in SYRINGE 0 ML IV PRN (06:33)
[2023-05-17] MEDS ORDERED: fentaNYL citrate PF 100 MCG/2 ML VIAL IV PRN (06:33)
[2023-05-17] MEDS ORDERED: ePHEDrine sulfate 50 MG/ML AMP IV PRN ×2 (06:33)
[2023-05-17] MEDS ORDERED: DC INTRASPINAL MORPHINE SCH (06:45)
[2023-05-17] MEDS ORDERED: SODIUM CHLORIDE 0.9% 1,000 ML IV SCH (06:45)
[2023-05-17] MEDS ORDERED: NO NARCOTICS OR SEDATIVES SCH (06:45)
[2023-05-17] MEDS ORDERED: MIDAZOLAM HCL 1 MG/ML 2ML VIAL ONE (06:49)
--- NOTE | 2023-05-17 06:51 | History & Physical Bridge Note ---
Date of Service May 17, 2023 History & Physical Bridge Note I have examined the patient, reviewed the History & Physical and in the interval since the performance of the History & Physical I have noted the following changes of clinical significance: no changes noted
[2023-05-17] MEDS ORDERED: MoRPHine SULFATE PF 1 MG/ML 10 ML AMP/VIAL ONE (06:57)
[2023-05-17] MEDS ORDERED: ORTHO JOINT ANESTHETIC ONE (06:59)
[2023-05-17] MEDS ORDERED: BUPIVACAINE/EPINEPHRINE 0.5% MPF 1:200,000 30 ML VIAL ONE (07:07)
[2023-05-17] MEDS ORDERED: DEXAMETHASONE SOD INJ 4 MG/ML VIAL ONE (07:30)
[2023-05-17] MEDS ORDERED: PROPOFOL IV EMULSION 10 MG/ML 20 ML VIAL IV ONE ×3 (07:30→08:16)
[2023-05-17] MEDS ORDERED: PHENYLEPHRINE 100MCG/ML 10ML SYR IV ONE (07:30)
--- NOTE | 2023-05-17 09:05 | Operative Report ---
PG Post Operative Report Pre & Post Diagnosis Operation Date: 05/17/23 07:15 Pre-Op Diagnosis: Left Hip Degenerative Joint Disease Post-Op Diagnosis: Left Hip Degenerative Joint Disease I identified the patient and participated in the time-out.: Yes Procedure Operation Date: 05/17/23 07:15 Actual Procedures p Left Total Hip Arthroplasty, Uncemented (Left) - Refugio Garcia MD Surgeon Refugio Garcia MD [facility] Director Henri Brown PA-C Estimated Blood Loss 200 Findings Consistent with Post-Op Diagnosis Operative findings were advanced left hip DJD. She had extensive grade 4 wpry-it-aaus disease the femoral head and acetabulum. She has significant osteophytes around the femoral head as well as the anterior acetabulum. Moderate-sized joint effusion. Fairly stiff hip preoperatively. Specimens Left femoral head sent for pathology Anesthesia Type Spinal MAC Complications none Disposition Accompanied Patient To Recovery: No Indications Patient is a 72-year-old female is had a several year history of increased left hip pain discomfort that is gradually gotten worse over time. Is been through extensive conservative treatment provided primarily at [facility] over the past several years. She has had multiple injections which became less successful. X-rays show advanced left hip arthritis. She like to see with total hip arthroplasty. Description of Procedure Operative implants consist of: 1 Biomet G7 size 52 mm acetabular shell. 2. [place] hole eliminator. 3. 6.5 cancellous acetabular screws 1 at 35 mm length 1 to 25 mm length. 4. Highly cross-linked polyethylene liner with a 52 mm outer diameter and 36 mm inner diameter. 5. DePuy Corail I size 10 KLA 125 degree angle short neck femoral stem. 6. +1.5/36 mm ceramic articular ball. The patient was taken the operating, identified, and placed on the operating table in the supine position but all contact areas were appropriately padded. IV antibiotics tried by anesthesia team. A spinal anesthetic was implemented in the holding area. The patient was then placed in the right lateral decubitus position. Axillary roll was placed. A Stulberg hip positioner was used for positioning. The left hip and leg were then prepped and draped in usual sterile fashion. A posterolateral approach to the left hip was then performed through a curvilinear incision centered over the greater trochanter. Sharp dissection was carried through subcutaneous tissue down to level the IT band gluteal fascia but the IT band gluteal fascia was then incised longitudinally in line with skin incision. The underlying greater bursa was excised. The piriformis and external rotators along with the posterior hip joint capsule were then released in the posterior aspect hip as a single layer. Hip was internally rotated and dislocated. Femoral neck osteotomy cut was made with a Final Cut about 8 mm above the lesser trochanter. Femoral head was removed and sent for pathology. The femur was retracted anteriorly. Attention drawn the acetabulum. The acetabular labrum was excised. The pulmonary fat was excised. Sequential reaming the acetabulum was then performed again with size 43 and progressing up to 51. I reamed a bit with a 52 reamer and then placed a 52 mm Biomet G7 acetabular shell in about 40 degrees lateral opening and 15 to 20 degrees of anteversion. The large anterior osteophyte was removed. Trial liner was placed. Attention drawn the femur. The proximal femur was entered with a Quisic cutter followed by canal finder. I then broached beginning with size 8 and progressed up to a 10. Get excellent fitted to 10. The standard offset stem was just too tight. We did elect to use a short neck stem. We trialed this. The even with a +5 articular ball it seemed a bit tight soft tissue bowden. It was fully stable in extension and flexion and internal rotation but was just a bit tight so we elected to use a +1.5 articular ball. We elect to place these implants. All trial implants were removed. An apex hole production technician was placed. Highly cross-linked polyethylene liner was placed. A size 10 KLA 125 degree angle short neck femoral stem was impacted in position. A +1.5/36 mm ceramic articular ball was placed. Hip was located and once again found to be stable. Attention drawn toward closing. Wound was irrigated coconuts pulsatile lavage solution. I did inject locally with 60 cc of half percent Marcaine with epinephrine. The posterior capsule and external rotators were then repaired through drill holes as a single layer with #2 Tycron suture through holes in the trochanter. The IT band gluteal fascia then closed in 1 PDS suture running fashion for subcutaneous tissue then closed with 2 Dexon suture in a buried interrupted fashion. Skin was closed skin s taples. Leg was then cleaned and dried and sterile Prevena VAC dressing was applied. She had a fairly thick soft tissue subcutaneous envelope with bit of a serous encounter draining nature. We use this Prevena VAC in order to maximize wound healing. The patient was then transferred to the recovery room in stable condition. Patient tolerated procedure well and there were no complications. Henri Brown, my physician fitness assistant, was present for the entire procedure. His assistance was essential and required for appropriate patient positioning, prepping and draping, surgical exposure, performing the technical details of the operation, placement the implants, closure of the wound, and placement of the sterile bandage. I attest to the content of the Intraoperative Record and any orders documented therein. Any exceptions are noted below.
--- NOTE | 2023-05-17 09:57 | Anesthesiology Progress Note ---
Date of Service May 17, 2023 Anesthesia Post Procedure Vital Signs Vital Signs: Temp Pulse Pulse Resp BP Pulse Ox O2 Del Method 05/17/23 09:50 88 18 143/57 H 95 Room Air 05/17/23 09:40 84 16 131/59 L 96 Room Air 05/17/23 09:30 36.4 C L 88 20 137/60 96 Room Air 05/17/23 09:20 87 18 115/57 L 100 Oxymask 05/17/23 09:10 80 16 145/63 H 100 Oxymask 05/17/23 09:00 88 15 134/59 L 100 Oxymask 05/17/23 08:50 36.0 C L 89 12 131/59 L 100 Oxymask 05/17/23 05:47 36.6 C 89 20 131/66 97 Room Air O2 Flow Rate 05/17/23 09:50 05/17/23 09:40 05/17/23 09:30 05/17/23 09:20 4 05/17/23 09:10 4 05/17/23 09:00 4 05/17/23 08:50 6 05/17/23 05:47 Transfer of Care Handoff Completed per policy Notes Mental Status: alert / awake / arousable Patient Amnestic to Procedure: Yes Nausea / Vomiting: adequately controlled Pain: adequately controlled Airway Patency, RR, SpO2: stable & adequate BP & HR: stable & adequate Hydration State: stable & adequate Neuraxial Anesthesia: was administered and sensory block is resolving Anesthetic Complications: no major complications apparent and Pt Satisfied with anesthetic care
[2023-05-17] MEDS ORDERED: NON-FORMULARY MEDICATION (Multivitamin Tablet) PO SCH (10:16)
[2023-05-17] MEDS ORDERED: bisacodyL 10 MG SUPP PR PRN (10:16)
[2023-05-17] MEDS ORDERED: FEXOFENADINE HCL 180 MG TAB PO PRN (10:16)
[2023-05-17] MEDS ORDERED: MAGNESIUM HYDROXIDE SUSP 30 ML UDC PO PRN (10:16)
[2023-05-17] MEDS ORDERED: METOCLOPRAMIDE HCL INJ 5 MG/ML 2 ML VIAL IV PRN (10:16)
[2023-05-17] MEDS ORDERED: ALUMINUM/MAGNESIUM SUSP 30 ML UDC PO PRN (10:16)
[2023-05-17] MEDS ORDERED: SENNA 8.6 MG TAB PO SCH ×2 (10:16→21:00)
[2023-05-17] MEDS: SODIUM CHLORIDE 0.9% 1,000 ML IV SCH ×2 (10:27→19:51)
--- NOTE | 2023-05-17 10:42 | XRay Report ---
XR hip 1V LT w pelvis HISTORY: 72 years-old Female IN PACU - Post Surgical left hip arthroplasty COMPARISON: 03/03/2023 TECHNIQUE: AP view the pelvis with crosstable lateral view of the left hip FINDINGS: Suboptimal dilation of the right hip secondary to internal rotation. Moderate right osteoarthritis re demonstrated. Left hip arthroplasty demonstrates satisfactory alignment without acute fracture. Later al skin marichuy are noted along with expected postoperative soft tissue swelling and deep tissue air. IMPRESSION: Left hip arthroplasty with expected postoperative changes. ACT 112: Negative or not required by law. The above report was generated using voice recognition software. It may contain grammatical, syntax o r spelling errors. Electronically signed by: Efraín Valentino M.D. 05/17/2023 10:41 AM
[2023-05-17] MEDS ORDERED: NON-FORMULARY MEDICATION (Glucos Sul 2kcl-Msm-Chond-C-Mn [Glucosamine Chondroitin] 550-30- PO SCH (11:30)
[2023-05-17] MEDS: CALCIUM 600MG + VIT D 400 IU TAB PO SCH (12:33)
[2023-05-17] MEDS: ASPIRIN 81 MG ECTAB PO SCH ×2 (12:33→19:54)
[2023-05-17] MEDS: DOCUSATE SODIUM 100 MG CAP PO SCH ×2 (12:33→19:55)
[2023-05-17] MEDS: MULTIVITAMIN TAB PO SCH (12:34)
[2023-05-17] MEDS: POTASSIUM CHLORIDE CRTAB 20 MEQ TABCR PO SCH (12:34)
[2023-05-17] MEDS: ESCITALOPRAM OXALATE 20 MG TAB PO SCH (12:34)
[2023-05-17] MEDS: KETOROLAC TROMETHAMINE 15 MG/ML VIAL IV SCH ×2 (12:35→16:58)
[2023-05-17] MEDS: ACETAMINOPHEN 500 MG TAB PO SCH ×2 (13:32→22:58)
[2023-05-17] MEDS: ceFAZolin 2000MG 2,000 MG/15 ML SYR IV SCH ×2 (14:21→22:59)
[2023-05-17] MEDS ORDERED: TRANEXAMIC ACID / 0.7% NACL 1,000 MG/100 ML BAG IV SCH (15:00)
[2023-05-17] MEDS: ASCORBIC ACID 500 MG TAB PO SCH (16:58)
[2023-05-17] MEDS ORDERED: LOSARTAN/HCTZ 50/12.5MG TAB PO SCH (21:00)
[2023-05-17] MEDS ORDERED: ATORVASTATIN 20 MG TAB PO SCH (21:00)
[2023-05-18] MEDS ORDERED: ONDANSETRON INJ 2 MG/ML 2 ML VIAL IV PRN (00:35)
[2023-05-18] MEDS ORDERED: traMADol HCL 50 MG TABLET PO PRN (00:35)
[2023-05-18] MEDS ORDERED: HYDROmorphone INJ 0.5 MG/0.5 ML SYR IV PRN (00:35)
[2023-05-18] MEDS: KETOROLAC TROMETHAMINE 15 MG/ML VIAL IV SCH ×3 (01:05→11:20)
[2023-05-18] MEDS: ACETAMINOPHEN 500 MG TAB PO SCH (05:28)
[2023-05-18 06:40] LABS: Basophils # (auto) 0.02 K/uL (0.00-0.20); Basophils % (auto) 0.1 %; Eosinophils # (auto) 0.01 K/uL (0.00-0.50); Eosinophils % (auto) 0.1 %; Hematocrit (blood only) 34.8 % (37.0-47.0); Hemoglobin 11.4 g/dl (12.0-16.0); Immature Granulocytes # (auto) 0.07 K/uL (0.01-0.20); Immature Granulocytes % (auto) 0.5 %; Lymphocytes # (auto) 1.83 K/uL (1.20-3.40); Lymphocytes % (auto) 13.7 %; Mean Corpuscular Hemoglobin 30.8 pg (25.0-34.0); Mean Corpuscular Hgb Conc 32.8 g/dL (32.0-36.0); Mean Corpuscular Volume 94.1 fL (80.0-100.0); Mean Platelet Volume 10.4 fL (9.4-12.4); Monocytes # (auto) 1.31 K/uL (0.11-0.59); Monocytes % (auto) 9.8 %; Neutrophils # (auto) 10.15 K/uL (1.40-6.50); Neutrophils % (auto) 75.8 %; Platelet Count 225 K/uL (130-400); RDW Standard Deviation 41.1 fL (36.4-46.3); White Blood Count 13.39 K/ul (4.8-10.8)
[2023-05-18 06:49] LABS: BUN Creatinine Ratio 22.4 (10-20); Calcium 9.6 mg/dl (8.6-10.3); Creatinine Clr Calc Pharmacy 69.7 ml/min; Est GFR (African American) 80.5 ml/min; Est GFR (Non-African American) 69.4 ml/min; Potassium 3.5 mmol/L (3.5-5.1)
[2023-05-18] MEDS ORDERED: dexAMETHasone 10 MG in SYRINGE 0 ML IV SCH (08:00)
[2023-05-18] MEDS: CALCIUM 600MG + VIT D 400 IU TAB PO SCH (08:16)
[2023-05-18] MEDS: ESCITALOPRAM OXALATE 20 MG TAB PO SCH (08:16)
[2023-05-18] MEDS: ASPIRIN 81 MG ECTAB PO SCH (08:16)
[2023-05-18] MEDS: DOCUSATE SODIUM 100 MG CAP PO SCH (08:16)
[2023-05-18] MEDS: POTASSIUM CHLORIDE CRTAB 20 MEQ TABCR PO SCH (08:16)
[2023-05-18] MEDS: MULTIVITAMIN TAB PO SCH (08:16)
[2023-05-18] MEDS: ASCORBIC ACID 500 MG TAB PO SCH (08:17)
--- NOTE | 2023-05-18 09:28 | Orthopedic Progress Note ---
Date of Service May 18, 2023 Assessment & Plan (1) Status post left hip replacement: Overall, she is doing quite well today with good pain control to the left hip. She will work with physical therapy later this morning to work on ambulation and range of motion exercises. She is on aspirin for DVT prophylaxis. She wishes to go to [facility] for rehabilitation. It appears that she can go when she is cleared for discharge. She may be discharged later today pending physical therapy evaluation. She will follow-up with Dr. Garcia in 2 weeks for postoperative care. Subjective . Krupa was seen and evaluated at bedside this morning resting comfortably in no apparent distress. She notes that her pain is well-controlled to the left hip. She has been up and out of bed with no significant issues. She denies any other concerns today. Review of Systems All systems reviewed & are unremarkable except as noted in HPI & below. Physical Exam . On physical examination of the left hip, dressings are clean, dry, intact. Prevena wound dressing maintaining negative pressure. Leg is out in full extension. She has active plantarflexion dorsiflexion of the left ankle. +2 DP and PT pulses. Less than 2-second capillary refill. Normal sensation. Neurovascular intact. Results & Data Results & Data Laboratory Results . Diagnostic Findings . Postoperative x-rays of the left hip show prosthesis to be in anatomical alignment with no signs of fracture complication or loosening. PG Care Time/CCT Total # of Minutes Spent Total Time Spent with Patient: Total time spent is greater than 50% in coordination of care (as documented) at patient's floor/unit and/or counseling patient: Coding Level of Care Code 30122 Post Operative Follow-Up Diagnoses Status post left hip replacement Z96.642
--- NOTE | 2023-05-18 09:34 | Discharge Summary ---
Date of Service May 18, 2023 Admission HPI (Per Admitting) . Patient is a 72-year-old female who presents for surgical treatment of her left hip. She has a several year history of increased left hip pain discomfort describes gotten worse over the past 10 years. Consequently worse over the past 3 years. Scribes groin pain thigh pain. She been seeing Dr. Maria at [facility] who has been treating her with injections. She has had 3 injections at all. This become less successful over time. Pains become more distant debilitating. She is actually had to resort to using a cane for the past year. She like to have her hip fixed. Admission Exam (Per Admitting) . Physical examination was a pleasant middle-age female. Looks in pretty good health. Examination left hip reveal patient walks with use of a cane. Does she limps on the left side. Is about half centimeter short in the left compared to the right. She does have pain and stiffness with hip motion. She can internally rotate to neutral which recreates her pain. Negative straight leg raise. She is neurologically intact. Principal Diagnosis Same as "Discharge Diagnosis" noted below under Discharge Instructions. Discharge Exam . On physical examination of the left hip, dressings are clean, dry, intact. Prevena wound dressing maintaining negative pressure. Leg is out in full extension. She has active plantarflexion dorsiflexion of the left ankle. +2 DP and PT pulses. Less than 2-second capillary refill. Normal sensation. Neurovascular intact. Discharge Data Procedures Performed Operation Date: 05/17/23 07:15 Actual Procedures p Left Total Hip Arthroplasty, Uncemented (Left) - Refugio Garcia MD Hospital Course (1) Status post left hip replacement: On May 17, 2023 Krupa arrived at [facility] and underwent a left total hip arthroplasty performed by Dr. Garcia with no complications. She had a spinal anesthetic. Postoperatively, she was started on aspirin for DVT prophylaxis and transferred to the general orthopedic floor in stable condition. Her hospital course was uneventful. On postoperative day #1, her vital signs were stable and her pain was well-controlled. She participated well with physical therapy working on ambulation and range of motion exercises. She was then discharged to [facility] for rehabilitation in stable condition. She will follow-up with Dr. Garcia in 2 weeks for postoperative care. PG Care Time/CCT Total # of Minutes Spent Total Time Spent with Patient: Total time spent is greater than 50% in coordination of care (as documented) at patient's floor/unit and/or counseling patient: Discharge Plan Discharge Items Patient Disposition: Transfer Inpatient Rehab Fac Reason For Visit: Left Hip Degenerative Joint Disease Discharge Diagnosis: Left Hip Replacement Activity: Per Instructions section Activity Comment: Follow/Obey hip precautions at all times. Weightbearing: Full weightbearing Weightbearing Comment: Weightbear as tolerated obeying hip precautions Non-emergency contact: Surgeon Call non-emergency contact if: you have any medication questions Follow-up/Referrals: Shannon Macais MD [Primary Care Provider] - Diet: Regular Addtl Attending Provider Instructions: ACTIVITY RECOMMENDATIONS: Physical Therapy: * Aggressive physical therapy is not usually needed. You will learn to take c are of yourself safely and walk. * Follow the "Hip Precautions Instructions." * In some cases, the social economist at the hospital will arrange to have a therapist come to your house for the first couple of weeks to help you learn these skills. * You need to practice on your own or with the help of a family member as needed. * When you learn these skills, most of the therapy can be done on your own. Home Exercise: * You were shown a series of exercises in the hospital. Do these exercises three to four times each day including the exercises you were shown in physical therapy. Walking: * Get up and walk several times each day. For the first four weeks, try not to stand or walk for more than one hour at a time. If you do stand or walk for more than one hour, you will not hurt anything, but your leg will likely swell. * As you feel comfortable, you may change from the walker or crutches to a cane and then to independent walking. MEDICATIONS: New Medicine: * You will likely be taking one or more of these medicines: 1. Tramadol - Take, as directed, when you need it, every six hours to control your pain. 2. Aspirin - Thins your blood to lessen the chance of forming a blood clot. * The most common side effects of pain medicine and iron are nausea and constipation. If nausea or constipation is too much of a problem or if you have any questions about your new medicines or doses, call [facility] at . We will try to help you manage these issues. "VERY IMPORTANT TO READ AND REVIEW" Pain: * The immediate post-operative period after hip replacement surgery is often quite painful. * You are given a prescription for pain medicine. You should take it, as directed, when you need it, especially before physical therapy and before going to bed. Pain that interferes with sleep is very common and can last several months. * You will likely need pain medicine for the first two to four weeks. It will not stop all of the pain. The pain will lessen and as you feel better, you may change to milder pain medicine such as Tylenol. * The most common side effects of pain medicine are nausea and constipation, so don't take more than you need. SPECIAL CARE INSTRUCTIONS: TEDs/Elastic Stockings: * The white elastic stockings help limit swelling and prevent blood clots from forming in your legs. The more you wear them, the more they work. * Wear them for six weeks. Incision Site Care: * Remove dressing postoperative day 2 and then shower. Keep direct shower pressure off the incision site. * After showering, cover marichuy with dry gauze and change daily or more frequently if the dressing is getting saturated with drainage. * May completely stop using bandage if wound is dry and no drainage * [place] are removed between 2 and 3 weeks post-op. If your follow-up appointment is made before 2 weeks, please have your appointment re- scheduled. It is too early to remove the marichuy. Prevention of Infection: * Take antibiotics one hour before any dental cleaning, dental work, urological procedure, gastrointestinal procedure or any invasive surgery in order to prevent your new joint from getting infected. * You may get the antibiotics from the doctor performing the procedure or you may call our office at before and we will call in a prescription to the pharmacy of your choice. Things to Watch For: * Drainage from the incision site that occurs more than one week after your surgery. * Severely increased leg pain or swelling. * Increased redness at the incision site. * Fever above 102 degrees Fahrenheit. * Unusual chest pain or shortness of breath. * Unusual pain or burning with urination. Call [facility] at with any of the above problems or if you have any questions about your medicines or recovery. FOLLOW UP VISIT: Make an appointment to see your doctor for approximately two weeks after surgery for a progress check and staple removal by calling the office at . Pending Studies at Discharge: No Stand-Alone Forms: My [facility] Skilled Items Patient informed of condition?: Yes DNR: No Discharge Level of Care: Acute rehab Communicable Disease: No Discharge Prognosis: Improving Lines: None Urinary Catheter: No Medications and DC Order Prescriptions: Continued (DME) Wheeled Walker Misc See Rx Instructions .MEDSUPPLY Qty: 1 0RF Rx Instructions: As directed tramadol 50 mg tablet 50 - 100 mg PO Q6 PRN (Reason: pain) Qty: 40 0RF Rx Instructions: Take as needed for pain ondansetron 4 mg tablet,disintegrating 4 mg PO Q8 PRN (Reason: nausea) Qty: 20 1RF Rx Instructions: Take as needed for nausea sennosides [Senokot] 8.6 mg tablet 8.6 mg PO BID 14 Days Qty: 28 0RF Rx Instructions: Take two times a day to prevent/treat constipation acetaminophen [Tylenol Extra Strength] 500 mg tablet 1,000 mg PO TID 30 Days Qty: 180 0RF Rx Instructions: Take 3 times per day to lessen pain aspirin [Gavin Low Dose Aspirin] 81 mg tablet,delayed release (DR/EC) 81 mg PO BID 45 Days Qty: 90 0RF Rx Instructions: Take to prevent blood clots. multivitamin Tablet 1 tab PO QAM atorvastatin [Lipitor] 20 mg Tablet 20 mg PO PM fexofenadine [Sofia] 180 mg Tablet 180 mg PO DAILY PRN (Reason: Allergy Symptoms) calcium carbonate-vitamin D3 [Calcium + D] 600 mg-5 mcg (200 unit) Tablet 1 tab PO QAM losartan-hydrochlorothiazide 100-25 mg Tablet 1 tab PO QPM escitalopram oxalate [Lexapro] 20 mg Tablet 20 mg PO QAM potassium chloride 20 mEq Tablet Extended Release 20 meq PO QAM Glucosamine Chondroitin 550-30-1 mg Capsule 1 cap PO QDL Amino Acid Synergy See Rx Instructions .ROUTE .COMPLEX Rx Instructions: Per surgeon's instructions Discontinued acetaminophen [Tylenol Arthritis] 650 mg Tablet Extended Release 650 mg PO Q12H PRN (Reason: Pain) Discharge Orders: Discharge Order (Routine); Ordered 05/18/23 Ordered By: Efraín Barlow Admission Data Admit Date/Time: 05/17/23 08:58 Attending Provider: Refugio Garcia Admit Provider: Refugio Garcia Primary Care Provider: Shannon Macias
== END 2023-05-18 11:45 ==
LOC: ASU 05:10 → 3E 05:10